=== PATIENT | male | born 1965 | race Caucasian/White ===

== ENCOUNTER → 2016-07-13 | Outpatient (CLI) | payer OTHER ==
[~2016-07-13] MED LIST: ACETAMINOPHEN325 M1 PO; B12INJ IM; BENZTROPINE ME0.5 MG PO; BISACODYL SUPP10 MG RE; CLONAZEPAM 1 MG1 M1 PO; CLONAZEPAM PO; COLACE 100 MG100 MG PO; CYMBALTA20 MG PO; FOLIC ACID 1 MG1 MG PO; HYDROXYZINE HCL50 MG PO; IBUPROFEN 800800 M1 PO; KEFLEX500 MG PO; LIDODERM TOP; MAG-AL PLUS SUS30 ML PO; MIRAPEX 0.250.25 M1 PO; PHENERGAN 25 MG25 M1 PO; PRILOSEC20 MG PO; PROTONIX40 M2 PO; SENNA-LAX8.6 MG PO; SEROQUEL PO; SEROQUEL200 MG PO; TOPROL XL25 MG PO; TRAMADOL 50 MG50 MG PO; UNICOMPLEX M TA1 TA1 PO; VITAMIN B-1100 M1 PO
== END ==
LOC: RAD 08:28
DX: K74.60 Unspecified cirrhosis of liver (principal); R10.9 Unspecified abdominal pain; K76.0 Fatty (change of) liver, not elsewhere classified; R18.8 Other ascites; R06.02 Shortness of breath

== ENCOUNTER 2017-02-17 14:38 | Inpatient (IN) | payer OTHER ==
[~2017-02-17] VITALS: Ht 177.8 cm; Wt 67.1 kg
--- NOTE | ~2017-02-17 | P ---
[facility] [place] [address] PROCEDURE REPORT Name: RACIEL MOROCHO JR Room #: 316-P [facility] IN M.R.#: [id number] Admission: 02/17/17 Attend Phys: Dl Holm Discharge: Date of : 69 Report #: [id number] THIS REPORT FOR: //name// CC: Masrhal Mock BRIEF HISTORY: The patient is a 51-year-old male with history of alcohol abuse and also heavy use of nonsteroidals, Aleve 4-6 per day with abdominal pain, nausea and vomiting. He also has had weight loss. He was told several weeks ago that he had cirrhosis but has not had a liver biopsy. PREOPERATIVE DIAGNOSES: 1. Nausea. 2. Vomiting. 3. Abdominal pain. POSTOPERATIVE DIAGNOSES: 1. Multiple shallow antral ulcers, possibly related to nonsteroidals. 2. Diffuse erythematous gastritis. MEDICATIONS: Deep sedation with propofol per anesthesia. SPECIMEN: Biopsies of antral ulcers. ESTIMATED BLOOD LOSS: 3 mL. PROCEDURE: EGD with biopsy. FINDINGS: Prior to propofol sedation, procedure of upper endoscopy was discussed with the patient as well as potential risks and its complications. He indicates he understands and desires to proceed. DESCRIPTION OF PROCEDURE: With the patient in left lateral decubitus position, the Fuji video endoscope was inserted in the cervical esophagus without difficulty. Examination of this organ through its entire length revealed normal esophageal mucosa throughout the entire length. No esophageal varices were seen. The patient has had erosive esophagitis in the past and none was seen today. The scope was advanced in the stomach, was examined on end view as well as retroflexed views. There was a diffuse erythema throughout the stomach. Previous biopsies were negative for H. pylori. He was noted to have 3 small shallow ulcers in the antrum of the stomach, they were nonbleeding. Largest was about 5 mm or so. Biopsies were obtained. In addition, gastric varices were not seen. The pylorus, duodenal bulb and postbulbar sweep were inspected and noted to be unremarkable. At that point, the scope was slowly withdrawn and careful circumferential views confirmed the above findings. The patient tolerated the procedure well. [address] [address] PROCEDURE REPORT Name: BAILEERACIEL Room #: 316-P [facility] IN .R.#: [id number] Admission: 02/17/17 Attend Phys: Dl Holm Discharge: Date of : 69 Report #: [id number] DISPOSITION: The patient with nausea, vomiting, abdominal pain. He does have small ulcers, which may be related to use of nonsteroidals as well as his heavy alcohol use. We will follow up on biopsies. Would treat with PPI at this point in time as well as discontinuation of alcohol and nonsteroidals. It is also noted that he has markedly abnormal alkaline phosphatase. MRCP has been ordered as well as mitochondria antibody. The patient may need a liver biopsy in the future depending on clinical course. In addition, he has fullness and early satiety. Gastric emptying study has been ordered, but cannot be done today due to the upper endoscopy. We will reorder for tomorrow. I will continue to monitor for liver function studies. <ELECTRONICALLY SIGNED> By: Ahsan Roberts MD 02/19/17 1715 1211 171 Ahsan Roberts MD /nt
--- NOTE | ~2017-02-17 | H ---
[facility] [place] [address] HISTORY AND PHYSICAL Name: RACIEL MOROCHO Room #: 448-P [facility] IN ..#: [id number] Admission: 02/17/17 Attend Phys: Dl Holm Discharge: Date of : 69 Report #: [id number] THIS REPORT FOR: //name// CC: Be Mock DATE OF SERVICE: 02/17/2017 CHIEF COMPLAINT: Nausea and weight loss. HISTORY OF PRESENT ILLNESS: The patient is a 51-year-old gentleman who was admitted from the office for evaluation of GI symptoms. He does have a history of cirrhosis and has reported about 2 weeks or longer of nausea and loss of appetite. He said he often regurgitates food and has nausea symptoms earlier in the morning and late at night. He has lost unspecified amount of weight. He has had no major abdominal pain, fever, chills, diarrhea, or recent change in medications. There has been no report of hematemesis. PAST MEDICAL HISTORY: Cirrhosis, bipolar schizophrenia, anxiety, history of remote Guillain-Alexander syndrome, has had several skin infections, and history of gastritis. PAST SURGICAL HISTORY: Cholecystectomy. FAMILY HISTORY: Noncontributory. SOCIAL HISTORY: Remote alcohol use, says none recently. ALLERGIES: None. MEDICATIONS: Cymbalta 60 mg twice a day, Remeron 30 mg, Seroquel 300 mg half tab in the morning, one and half tabs at night; clonazepam 1 mg 3 times a day, aspirin 81 mg, trazodone 100 mg at night, and Prilosec 40 mg. REVIEW OF SYSTEMS: Denies headache, chest pain, shortness of breath, dysuria, myalgias, arthralgias, syncope or fall. OBJECTIVE: VITAL SIGNS: Temperature 36.6, pulse 80, respirations 18, blood pressure . GENERAL: He is awake and alert, in no distress. LUNGS: Clear with no wheezing. HEART: Regular, without murmur. ABDOMEN: Soft, normoactive bowel sounds, slightly distended. EXTREMITIES: No cyanosis, clubbing, or edema. LAB DATA: Reviewed. [facility] [address] [facility] [place] [address] HISTORY AND PHYSICAL Name: RACIEL MOROCHO TAMICA Room #: 448-P [facility] IN R.#: [id number] Admission: 02/17/17 Attend Phys: Dl Holm Discharge: Date of : 69 Report #: [id number] Upper GI series showed a small hiatal hernia. Ultrasound of the abdomen showed cirrhosis of the liver and mild ascites. Chest x-ray was negative. Blood cultures negative so far. ASSESSMENT: 1. Nausea and vomiting. 2. Weight loss. 3. Cirrhosis of the liver. 4. Hypokalemia. PLAN: Gastric emptying time to be ordered. I will ask the GI service to see him in regards to any need for EGD or other invasive workup. <ELECTRONICALLY SIGNED> By: Alejandro Carranza MD 02/19/17 0853 [id number] [id number] Alejandro Carranza MD /nt
--- NOTE | ~2017-02-17 | S ---
[facility] [place] [address] SURGICAL PATH RPT PROCEDURE Name: LENNOX MOROCHO Room #: 316-P [facility] IN M.R.#: [id number] Admission: 02/17/17 Date of : 69 Discharge: 02/20/17 Report #: [id number] Path Case #: [id number] PATHOLOGY REPORT COLLECTION DATE: 02/19/2017 RECEIVED DATE: 02/19/2017 SUBMITTING PHYS: Dr. Ahsan Roberts OTHER PHYS: Dr. Be Mock SPECIMEN(S) RECEIVED: A.Bx of gastric ulcers * * * * * * * * * * * * FINAL DIAGNOSIS: Gastric mucosa, gastric ulcers, endoscopic biopsy: - Moderate reactive gastropathy. - Negative for intestinal metaplasia or atrophy. - Negative for Helicobacter pylori. (IUV:pit; 02/22/2017) COMMENT: Helicobacter pylori immunohistochemical stain performed on block A1 - negative. (IUV:pit; 02/22/2017) PATHOLOGIST: Carrie Bautista M.D. REPORT ELECTRONICALLY SIGNED BY: Carrie Bautista M.D. DATE/TIME: 02/22/2017 17:03 * * * * * * * * * * * * GROSS PATHOLOGY: Received in formalin labeled "Lennox Morocho, BX of gastric ulcers," are 2 segments of waldrop soft tissue measuring 0.8 x 0.3 x 0.3 cm in aggregate dimensions and ranging from 0.4 to 0.4 cm in maximum dimension. The specimen is submitted entirely in cassette A1. (TSD; 02/19/2017) CLINICAL HISTORY: History of alcohol use + NSAIDS INITIAL CPT CODE(S): A; 50707, 10998 Professional [facility] performed by [facility] [address] , [place] [address] [facility] [address] [place] [address] SURGICAL PATH RPT PROCEDURE Name: LENNOX MOROCHO Room #: 316-P [facility] IN M.R.#: [id number] Admission: 02/17/17 Date of : 69 Discharge: 02/20/17 Report #: [id number] Path Case #: [id number] Technical services performed by [facility] at [address] [place] [address], [facility] [address] [address]. [facility] [address] [place] [address] PHONE: [phone] DIRECTOR: Abelardo Roblero M.D. * * * END OF REPORT * * *
--- NOTE | ~2017-02-17 | HC ---
[facility] [place] [address] CONSULTATION Name: RACIEL MOROCHO JR Room #: 316-P [facility] IN M.R.#: [id number] Admission: 02/17/17 Attend Phys: Dl Holm Discharge: 02/20/17 Date of : 69 Report #: [id number] THIS REPORT FOR: //name// CC: Marshal Mock DATE OF SERVICE: 02/18/2017 TYPE OF REPORT: Gastroenterology consultation. PATIENT OF: Marshal Mock M.D. CHIEF COMPLAINT AND HISTORY OF PRESENT ILLNESS: This is a very pleasant 51-year-old white male who I am asked to evaluate for symptoms of nausea and vomiting within 15 minutes of any oral intake, early satiety, a 37-pound weight loss that was unintentional in the last month, dysphagia to solids and liquids and awaking at night with a choking sensation. The patient also has had diarrhea and pain across his lower abdomen of undetermined etiology. He has had occasional black stools. PAST MEDICAL HISTORY: Significant for cirrhosis, hiatal hernia, peptic ulcer disease, Schatzki ring, bipolar depression, Schizoaffective, left sciatica, Guillian-Hampden syndrome, heart murmur, the patient has dyspnea on exertion at times, he has oxygen desaturation and he has arthritis in his knee. PAST SURGICAL HISTORY: Significant for cholecystectomy. ALLERGIES: No known drug allergies. MEDICATIONS: Prior to admission included zinc, clonazepam, antacids, Remeron, Prilosec, Seroquel and trazodone as well as Aleve 2 tabs p.o. t.i.d. SOCIAL HISTORY: He apparently has not been drinking recently but used to drink 12-pack beer per day. He smokes 1 pack of cigarettes per day. He does not use any illicit drugs. FAMILY HISTORY: Significant for diverticulosis in his father. There is no history of colon polyps, colon cancers, Crohn's disease or ulcerative colitis in his family. REVIEW OF SYSTEMS: He admits to dysphagia to both liquids and solids. He has some symptoms of gastroesophageal reflux and I think this is what he takes the Prilosec for at home. He has a history of hiatal hernia and peptic ulcer disease. He has had nausea and vomiting within 15 minutes of any oral intake. He experiences early satiety. He sates his early satiety has been going on for [facility] [address] [place] [address] CONSULTATION Name: BAILEERAICELKaleb DAVEY JR Room #: 316-P [facility] IN [facility].#: [id number] Admission: 02/17/17 Attend Phys: Dl Holm Discharge: 02/20/17 Date of : 69 Report #: [id number] about the last 8 months. He has lost 37 pounds in the past 1 month, unintentionally. He has no history of diabetes. He has a history of hiatal hernia and peptic ulcer disease. He has had diarrhea and crampy lower abdominal pain that extend upward that is a pressure-like pain. He has had occasional black stools recently. He has a history of cirrhosis. He has had his gallbladder removed as I mentioned. PHYSICAL EXAMINATION: GENERAL: Reveals a well-developed, thin 51-year-old white male who is in no apparent distress at the time of my examination. He is awake, alert and oriented x 4 and cooperative and very pleasant to converse with. VITAL SIGNS: Blood pressure 122/85, temperature 97.9, pulse 80 and respirations are 18. His weight is 148 pounds today and his height is 5 feet 10 inches. HEENT: He is normocephalic, atraumatic and anicteric. HEART: Rate and rhythm are regular with a normal S1 and S2. LUNGS: Clear bilaterally. ABDOMEN: Soft. Bowel sounds are present in all 4 quadrants. There is no palpable organomegaly or mass. There is tenderness in the lower quadrants but no rebound or guarding. EXTREMITIES: Warm and dry with no peripheral cyanosis, clubbing or edema. NEUROLOGICAL: He appears grossly intact without any lateralizing signs. SIGNIFICANT LABORATORY DATA: His sodium was 131 on admission with potassium 3.0, chloride 91, CO2 was 28, BUN was 8, creatinine 0.7 and glucose was 139. AST 56, ALT 24, alkaline phosphatase 667 and total bilirubin is 2.1. His GGTP was greater than 800. White count 5.8; hemoglobin 15.5; hematocrit 43.5; MCV was 106; MCH 38; MCHC 36; RDW is 14.5 and platelets 179,000. TSH was 4.254, which is slightly elevated. RADIOLOGICAL DATA: Upper GI series showed a sliding hiatal hernia, mild gastroesophageal reflux, stomach was normal and the duodenum and proximal small bowel were normal. Ultrasound of the abdomen was done to evaluate elevated liver enzymes with the disease and cirrhosis. The liver was enlarged at 19.5 cm and echogenic and somewhat inhomogeneous with lobulation of the liver consistent with cirrhosis. Spleen is 13.8 cm. There was [id number] perihepatic ascites noted. Bile duct was 7 mm and the gallbladder was absent. The liver appeared similar to a previous ultrasound on 07/13/2016 and ascites was noted at that time as well. IMPRESSION: 1. Early satiety, nausea and vomiting within 15 minutes of eating, no matter what kind of food eaten. This sounds like gastroparesis. The patient has had a gastric emptying study today, I am told but the results are not available in the computer area. 2. Weight loss, unintentional of 37 pounds in the past month. 3. Dysphagia to liquids and solids. [facility] [address] [place] [address] CONSULTATION Name: RACIEL MOROCHO JR Room #: 316-P [facility] IN .R.#: [id number] Admission: 02/17/17 Attend Phys: Dl Holm Discharge: 02/20/17 Date of : 69 Report #: [id number] 4. History of dilatation of a Schatzki ring by Dr. Zeng in 2014. 5. History of hiatal hernia and peptic ulcer disease. 6. The patient awakens at night, chocking. This may be gastroesophageal reflux. 7. Diarrhea, rule out Clostridium difficile. 8. Pain across the lower abdomen. 9. Cirrhosis, likely due to alcohol. 10. Occasional black stools. 11. Elevated alkaline phosphatase over 600 with GGTP over 800. 12. Elevated TSH, may be significant for hypothyroidism. 13. Bipolar depression. 14. Schizophrenia. 15. Left-sided sciatica. 16. History of Guillian-Hampden syndrome. 17. Oxygen desaturation intermittently. 18. Intermittent dyspnea on exertion. 19. Arthritis in his knees for which he has been taking any Aleve 2 tabs p.o. q.i.d. and Ecotrin p.r.n. 20. Status post cholecystectomy. RECOMMENDATIONS: My recommendations are as follows: I agree with the gastric emptying study. The patient may also need an EGD with possible dilatation of his esophagus. I agree with the proton pump inhibitors and he should stop any alcohol but he still be drinking. We will check a stool for C. difficile toxin. We will plan on an EGD in the morning by Dr. Roberts. I will check a Protime in the morning as well. We will continue him on proton pump inhibitors. I think further evaluation of his elevated alkaline phosphatase and GGTP needs to be undertaken because this is a greater elevation than he has ever had in previous labs and I will check an antimitochondrial antibody. The elevated TSH needs to be addressed as the patient may need to the Synthroid. Thank you very much once again for allowing me to participate in his care. <ELECTRONICALLY SIGNED> By: Jessica Mclaughlin DO 02/24/17 0622 [id number] Jessica Mclaughlin DO /nt
[2017-02-17 15:41] VITALS: BP 126/91
[2017-02-17] MEDS ORDERED: REMERON 30 MG T30 M1 PO (16:54)
[2017-02-17] MEDS ORDERED: ZINC30 MG PO (16:55)
[2017-02-17] MEDS ORDERED: TRAZODONE HCL100 MG PO (16:55)
[2017-02-17 18:48] LABS: ABSOLUTE NEUTROPHILS 3.8 thou/uL (1.4-8.2); BASOPHILS 0.5 % (0.0-2.0); EOSINOPHILS 2.6 % (0.0-3.0); HEMATOCRIT 43.5 % (42.0-52.0); HEMOGLOBIN 15.5 gm/dL (14.0-18.0); LYMPHOCYTES 20.3 % (24.0-44.0); MCH 37.7 pg (26.0-34.0); MCHC 35.6 g/dL (28.0-37.0); MONOCYTES 11.5 % (1.0-8.0); PLATELET COUNT 179 thou/uL (150-400); POLYS 65.1 % (36.0-66.0); RBC 4.11 mil/uL (4.50-6.00); RDW 14.5 % (10.5-14.5); WBC 5.8 thou/uL (4.0-11.0)
[2017-02-17 18:59] LABS: ALBUMIN 3.6 g/dL (3.4-5.0); CALCIUM 9.4 mg/dL (8.5-10.1); CREATININE 0.7 mg/dL (0.7-1.3); TOTAL BILIRUBIN 2.1 mg/dL (<0.1-1.0); TOTAL PROTEIN 7.5 g/dL (6.4-8.2)
[2017-02-17 19:12] LABS: MANUAL DIFF NO
[2017-02-17 19:36] VITALS: BP 114/85
[2017-02-18 04:14] VITALS: BP 116/84
[2017-02-18 07:31] VITALS: BP 122/85
[2017-02-18 16:02] VITALS: BP 111/74
[2017-02-18 20:00] VITALS: BP 100/69
[2017-02-19 05:00] VITALS: BP 121/80
[2017-02-19 06:41] LABS: ALBUMIN 3.4 g/dL (3.4-5.0); CALCIUM 9.3 mg/dL (8.5-10.1); CREATININE 0.6 mg/dL (0.7-1.3); POTASSIUM 3.4 mmol/L (3.5-5.1); TOTAL BILIRUBIN 1.7 mg/dL (<0.1-1.0); TOTAL PROTEIN 7.3 g/dL (6.4-8.2)
[2017-02-19 08:16] VITALS: BP 115/82
[2017-02-19 20:00] VITALS: BP 117/78
[2017-02-20 00:10] LABS: HEPATITIS C VIRUS AB <0.1 (0.0-0.9)
[2017-02-20 04:30] VITALS: BP 112/79
[2017-02-20 05:58] LABS: ALBUMIN 3.3 g/dL (3.4-5.0); TOTAL BILIRUBIN 1.3 mg/dL (<0.1-1.0); TOTAL PROTEIN 6.9 g/dL (6.4-8.2)
[2017-02-20 08:26] VITALS: BP 125/84
[2017-02-20 09:34] VITALS: BP 125/84
== END 2017-02-20 09:45 | disposition home or self-care (01) | DRG 433 ==
LOC: 4S 14:38 → 3N 02-19 15:19
PROVIDERS: Internal Medicine; Internal Medicine Gastroenterology; Internal Medicine Geriatric Medicine; Specialist
PROC: 0DB68ZX Excision of Stomach, Via Natural or Artificial Opening Endoscopic, Diagnostic (ICD-10-PCS; principal; 2017-02-19)
DX: K70.30 Alcoholic cirrhosis of liver without ascites (principal); G61.0 Guillain-Barre syndrome; F31.9 Bipolar disorder, unspecified; M54.32 Sciatica, left side; M19.90 Unspecified osteoarthritis, unspecified site; R68.81 Early satiety; R13.10 Dysphagia, unspecified; F41.9 Anxiety disorder, unspecified; E87.6 Hypokalemia; F10.21 Alcohol dependence, in remission; K25.9 Gastric ulcer, unspecified as acute or chronic, without hemorrhage or perforation; K29.70 Gastritis, unspecified, without bleeding; F20.9 Schizophrenia, unspecified; Z87.11 Personal history of peptic ulcer disease; Z90.49 Acquired absence of other specified parts of digestive tract; Z84.89 Family history of other specified conditions
CPT/HCPCS: 10102; 10795; 62110; 62900; 70005

== ENCOUNTER → 2017-02-23 | Outpatient (CLI) | payer OTHER ==
[~2017-02-23] MED LIST changes: +REMERON 30 MG T30 M1 PO; +TRAZODONE HCL100 MG PO; +ZINC30 MG PO
== END ==
LOC: NUC 11:03
DX: K31.84 Gastroparesis (principal); R11.0 Nausea

== ENCOUNTER 2017-08-08 08:57 | Emergency (ER) | payer OTHER, BC ==
[~2017-08-08] VITALS: Ht 175.3 cm; Wt 74.8 kg
[2017-08-08 09:26] LABS: ABSOLUTE NEUTROPHILS 9.1 thou/uL (1.4-8.2); BASOPHILS 0.7 % (0.0-2.0); EOSINOPHILS 1.5 % (0.0-3.0); HEMATOCRIT 49.8 % (42.0-52.0); HEMOGLOBIN 17.7 gm/dL (14.0-18.0); LYMPHOCYTES 9.8 % (24.0-44.0); MCH 37.3 pg (26.0-34.0); MCHC 35.6 g/dL (28.0-37.0); MCV 104.9 fL (80.0-100.0); MONOCYTES 11.4 % (1.0-8.0); PLATELET COUNT 375 thou/uL (150-400); POLYS 76.6 % (36.0-66.0); RBC 4.75 mil/uL (4.50-6.00); RDW 13.4 % (10.5-14.5); WBC 11.8 thou/uL (4.0-11.0)
[2017-08-08 09:27] LABS: CALCIUM 9.5 mg/dL (8.5-10.1); CREATININE 0.8 mg/dL (0.7-1.3)
[2017-08-08 09:35] LABS: DIRECT BILIRUBIN 1.6 mg/dL (<0.1-0.3); TOTAL BILIRUBIN 2.4 mg/dL (<0.1-1.0); TOTAL PROTEIN 8.5 g/dL (6.4-8.2)
[2017-08-08 09:44] LABS: ANISOCYTOSIS 1+
[2017-08-08] MEDS ORDERED: PHENERGAN 25 MG25 M1 PO (10:13)
[2017-08-08] MEDS ORDERED: PROMS25 WY RECTAL (10:13)
[2017-08-08] MEDS ORDERED: ZOFRAN ODT4 MG PO (10:13)
[2017-08-08] MEDS ORDERED: NORCO 5-325 TA1 EACH PO (10:28)
[2017-08-08] MEDS ORDERED: POTASSIUM20 PO (10:28)
[2017-08-08 11:16] VITALS: BP 146/74
== END 2017-08-08 11:17 | disposition home or self-care (01) ==
LOC: ER 08:57
PROVIDERS: Emergency Medicine
DX: R19.7 Diarrhea, unspecified (principal); R11.2 Nausea with vomiting, unspecified; K74.60 Unspecified cirrhosis of liver; E87.6 Hypokalemia; R94.5 Abnormal results of liver function studies; F10.10 Alcohol abuse, uncomplicated; K21.9 Gastro-esophageal reflux disease without esophagitis

== ENCOUNTER 2017-11-29 13:14 | Inpatient (IN) | payer OTHER, BC ==
[~2017-11-29] VITALS: Ht 175.3 cm; Wt 59.2 kg
--- NOTE | ~2017-11-29 | HC ---
[facility] [place] [address] CONSULTATION Name: RACIEL MOROCHO JR Room #: 208-P [facility] IN M.R.#: [id number] Admission: 11/29/17 Attend Phys: Dl Holm Discharge: Date of : 69 Report #: [id number] THIS REPORT FOR: //name// CC: Be Mock DATE OF SERVICE: 11/30/2017 HISTORY OF PRESENT ILLNESS: The patient was admitted with concerns about alcohol detox. The patient has been drinking heavily for a couple of weeks now. He notes his psychiatrist had recently switched to an antidepressant from Trintellix to something else because of lack of response and in fact also suicidal thinking. The patient confesses that he has cirrhosis and he knows he needs to stop alcohol use. He denies suicidal ideation at this time. He is motivated for sobriety. PAST PSYCHIATRIC HISTORY: The patient has been diagnosed with schizophrenia in the past. He acknowledges that his symptoms are not terribly severe, but he will at times hear voices and be talking to himself. He believes that his symptoms of schizophrenia are distinct from alcohol use disorder and as much as his symptoms are not related to alcohol use or withdrawal. He does think it is likely though that periods of significant hallucinations can increase likelihood of alcohol use. Currently, he is seeing Dr. Elio Banks with the [facility] [place]. Recently, he was on Trintellix, which was associated with the adverse drug reaction of suicidal thinking. More recently, I think he has been on Seroquel and duloxetine though then he tells me that he believes Seroquel has been changed. PAST MEDICAL HISTORY: History of Guillain-Edgemont and cirrhosis. SOCIAL HISTORY: He lives alone, but has some pets. He does have a family and friends in the [place] area. He has been battling alcohol use disorder and in the last few years does not seem there is a period of sobriety longer than 30 days and he has struggled with periods of 1-2 weeks of alcohol use interspersed with weeks of sobriety. COGNITIVE EXAMINATION: He is alert and oriented to person, place, situation and time. No significant deficits of short-term, long-term, intermediate memory as evidenced by his ability to recall elements of the past medical, psychiatric and social history. MENTAL STATUS EXAMINATION: A male, casually dressed. No involuntary movements. Depressed mood and restricted affect. Currently, no hallucinations. No delusions. No suicidal or homicidal ideation. Insight and judgment fair. DIAGNOSIS: Chronic paranoid schizophrenia, major depressive disorder and recurrent alcohol use disorder. [facility] [address] [place] [address] CONSULTATION Name: RACIEL MOROCHO Room #: 208-P [facility] IN M.R.#: [id number] Admission: 11/29/17 Attend Phys: Dl Holm Discharge: Date of : 69 Report #: [id number] RECOMMENDATIONS: It appears that perhaps his regimen had been changed to continue to include Seroquel, but also utilize duloxetine and mirtazapine for depression. Does appear there is lorazepam ordered in case he should have symptoms of significant withdrawal. He has failed Campral for alcohol use disorder in the past. I believe that naltrexone would be an excellent intervention with respect to alcohol use disorder and I believe as an outpatient, he could get this from either Dr. Banks or Dr. Mock. He should continue to follow with Dr. Banks with respect to depression management and schizophrenia management. He is welcome to see one of the therapists in my office such as Edilberto Ronquillo who he has seen in the past or Mary Felix or Marshal Tobias or more active with addiction counseling. By: 1524 0025 Jamarcus Cobb MD /nt
--- NOTE | ~2017-11-29 | H ---
[facility] [place] [address] HISTORY AND PHYSICAL Name: RACIEL MOROCHO JR Room #: 208-P [facility] IN .R.#: [id number] Admission: 11/29/17 Attend Phys: Dl Holm Discharge: Date of : 69 Report #: [id number] THIS REPORT FOR: //name// CC: Be Mock DATE OF SERVICE: 11/29/2017 CHIEF COMPLAINT: Abdominal pain, nausea, vomiting, weight loss. HISTORY OF PRESENT ILLNESS: The patient is a 52-year-old gentleman who presented to the Emergency Room with abdominal pain with nausea and vomiting. For the last 3 or 4 weeks, he has had intermittent nausea, vomiting and has lost about 40 pounds. He is not regurgitating food, but does report a bile. He says, maybe, there has been scattered blood, but nothing significant. He apparently was hospitalized last month in [place] for similar symptoms, but he said really they did not pursue any diagnostic workup. It does seem to get better with conservative treatment and was discharged home. He does have a history of cirrhosis of the liver due to alcohol use and pancreatitis. PAST MEDICAL HISTORY: Guillain-Benton syndrome, alcohol abuse, cirrhosis, hiatal hernia, GERD, schizophrenia, bipolar. PAST SURGICAL HISTORY: Unknown. FAMILY HISTORY: Noncontributory. SOCIAL HISTORY: Chronic alcohol, tobacco use. He admits to marijuana use. ALLERGIES: None. MEDICATIONS: Remeron, trazodone, Prilosec, Seroquel, Cymbalta. REVIEW OF SYSTEMS: He denies headache, chest pain, shortness of breath, dysuria, myalgias, syncope or fall. OBJECTIVE: VITAL SIGNS: Temperature 36.8, pulse 50, respirations 18, blood pressure 155/90, O2 sat 100% on room air. GENERAL: He is awake and alert, in no distress. HEAD AND NECK: Unremarkable. LUNGS: Clear. HEART: Regular. ABDOMEN: Soft, flat, normal bowel sounds, just diffusely tender. EXTREMITIES: No cyanosis, clubbing or edema. NEUROLOGIC: Cranial nerves intact. Motor strength intact. [facility] [address] [place] [address] HISTORY AND PHYSICAL Name: RACIEL MOROCHO TAMICA Room #: 208-P [facility] IN .R.#: [id number] Admission: 11/29/17 Attend Phys: Dl Holm Discharge: Date of : 69 Report #: [id number] LABORATORY DATA: His alcohol level was 138, lipase was normal, transaminase levels fairly normal. CT of the abdomen shows cirrhosis, ascites, possible transverse colon colitis. ASSESSMENT: 1. Abdominal pain. 2. Alcohol abuse. 3. Cirrhosis of the liver. The patient will be placed on alcohol withdrawal protocol. I will ask the GI Service to see him regarding possible endoscopy. <ELECTRONICALLY SIGNED> By: Alejandro Carranza MD 11/30/17 1241 1006 1023 Alejandro Carranza MD /aman
--- NOTE | ~2017-11-29 | D ---
[facility] [place] [address] DISCHARGE SUMMARY Name: RACIEL MOROCHO Room #: 208-P [facility] IN M.R.#: [id number] Admission: 11/29/17 Attend Phys: Dl Holm Discharge: 12/02/17 Date of : 69 Report #: [id number] THIS REPORT FOR: //name// CC: Be Mock DATE OF SERVICE: 12/02/2017 FINAL DIAGNOSES: 1. Cirrhosis of the liver. 2. Alcohol abuse. 3. Chronic thrombocytopenia. 4. Macrocytic anemia. 5. B12 deficiency. 6. Electrolytes imbalance. 7. Gastritis. HOSPITAL COURSE: The patient was admitted with abdominal pain. Lab data was fairly unremarkable other than slight low magnesium, which he was replaced. GI Service saw him. MRI of the liver was obtained, which showed cirrhosis. There was no mass. Lipase and amylase were negative. He underwent EGD, which showed just mild erythema of the gastric lining, but no ulcers or bleeding. He was treated symptomatically. He had no other interval complications. He was watched for alcohol withdrawal, but had no symptoms. He was alert and oriented. There were no signs of delirium, no signs of tachycardia or hypertension. PHYSICAL EXAMINATION: GENERAL: On the day of discharge, he was resting comfortably in bed, alert and oriented, in no distress. VITAL SIGNS: Temperature 36.6, pulse 57, respirations 18, blood pressure 125/80, O2 sat 99% on room air. LUNGS: Clear. HEART: Regular. ABDOMEN: Soft, normoactive bowel sounds. EXTREMITIES: No edema. DISPOSITION: To be discharged to home with diet and activity as tolerated, resume all home meds, plus magnesium supplement, thiamine supplement. He will need outpatient B12 supplement and follow up with Dr. Mock in 1 week. <ELECTRONICALLY SIGNED> By: Alejandro Carranza MD 12/03/17 0956 [id number] 1039 Alejandro Carranza MD /nt
[~2017-11-29 13:14] MED LIST changes: +NORCO 5-325 TA1 EACH PO; +POTASSIUM20 PO; +PROMS25 WY RECTAL; +ZOFRAN ODT4 MG PO
[2017-11-29 13:17] VITALS: BP 152/92
[2017-11-29 14:41] LABS: ABSOLUTE NEUTROPHILS 6.6 thou/uL (1.4-8.2); BASOPHILS 1.1 % (0.0-2.0); EOSINOPHILS 1.4 % (0.0-3.0); HEMATOCRIT 51.9 % (42.0-52.0); HEMOGLOBIN 18.1 gm/dL (14.0-18.0); LYMPHOCYTES 17.8 % (24.0-44.0); MCH 35.3 pg (26.0-34.0); MCHC 34.9 g/dL (28.0-37.0); MCV 101.1 fL (80.0-100.0); MONOCYTES 9.2 % (1.0-8.0); PLATELET COUNT 317 thou/uL (150-400); POLYS 70.5 % (36.0-66.0); RBC 5.14 mil/uL (4.50-6.00); WBC 9.4 thou/uL (4.0-11.0)
[2017-11-29 14:48] LABS: CALCIUM 9.8 mg/dL (8.5-10.1); CREATININE 0.8 mg/dL (0.7-1.3); POTASSIUM 4.2 mmol/L (3.5-5.1)
[2017-11-29 14:56] LABS: ALBUMIN 4.3 g/dL (3.4-5.0); TOTAL PROTEIN 8.9 g/dL (6.4-8.2)
[2017-11-29 17:03] LABS: URINE BLOOD NEGATIVE (Negative); URINE CLARITY CLEAR; URINE COLOR YELLOW; URINE GLUCOSE-RANDOM* NEGATIVE (Negative); URINE KETONES 2+ (Negative); URINE LEUKOCYTES-REFLEX NEGATIVE (Negative); URINE NITRITE-REFLEX NEGATIVE (Negative); URINE PROTEIN (DIPSTICK) 2+ (Negative); URINE SPECIFIC GRAVITY 1.015 (1.005-1.035); URINE UROBILINOGEN 0.2 E.U./dl (0.2-1.0)
[2017-11-29 17:07] LABS: ICTOTEST (BILI CONFIRMATORY) Negative (Negative); URINE BILIRUBIN NEGATIVE (Negative)
[2017-11-29 17:14] LABS: CASTS None Seen /LPF (None Seen); SQUAMOUS None Seen /LPF (0-3)
[2017-11-29 17:15] LABS: BACTERIA-REFLEX 1-9 Few /HPF (None Seen); CRYSTALS None Seen /LPF (None Seen); URINE RBC None Seen /HPF (0-2); URINE WBC-REFLEX 0-5 Rare /HPF (0-5)
[2017-11-29 18:00] VITALS: BP 130/78
[2017-11-30 00:15] VITALS: BP 142/80
[2017-11-30 06:00] VITALS: BP 155/83
[2017-11-30 07:09] VITALS: BP 155/90
[2017-11-30 11:29] VITALS: BP 144/77
[2017-11-30 15:00] VITALS: BP 135/74
[2017-11-30 17:07] LABS: AMP/METHAMP Negative (Negative); BARBITURATES Negative (Negative); BENZODIAZEPINES Negative (Negative); COCAINE Negative (Negative); METHADONE Negative (Negative); OPIATES POSITIVE (Negative); PCP Negative (Negative)
[2017-11-30 19:57] VITALS: BP 127/79
[2017-12-01 04:10] VITALS: BP 93/61
[2017-12-01 07:49] VITALS: BP 104/74
[2017-12-01 09:55] LABS: HEMATOCRIT 41.1 % (42.0-52.0); MCH 34.7 pg (26.0-34.0); MCHC 33.7 g/dL (28.0-37.0); MCV 102.8 fL (80.0-100.0); RDW 15.7 % (10.5-14.5); WBC 3.5 thou/uL (4.0-11.0)
[2017-12-01 10:02] LABS: HEMOGLOBIN 13.9 gm/dL (14.0-18.0)
[2017-12-01 10:03] LABS: CALCIUM 8.7 mg/dL (8.5-10.1); CREATININE 0.6 mg/dL (0.7-1.3); POTASSIUM 3.7 mmol/L (3.5-5.1)
[2017-12-01 11:08] VITALS: BP 101/67
[2017-12-01 20:27] VITALS: BP 115/78
[2017-12-02 03:29] VITALS: BP 125/80
[2017-12-02 03:52] LABS: CALCIUM 8.9 mg/dL (8.5-10.1); CREATININE 0.6 mg/dL (0.7-1.3); MAGNESIUM 1.5 mg/dL (1.8-2.4); PHOSPHORUS 3.7 mg/dL (2.5-4.9); POTASSIUM 3.9 mmol/L (3.5-5.1)
[2017-12-02 08:01] VITALS: BP 118/82
[2017-12-02] MEDS ORDERED: MAGOX 400400 MG PO (09:22)
[2017-12-02] MEDS ORDERED: VITAMIN B-1100 M2 PO (09:23)
[2017-12-02 09:47] VITALS: BP 118/82
== END 2017-12-02 11:02 | disposition home or self-care (01) | DRG 432 ==
LOC: ER 13:14 → 2N 17:20 → EROBS 17:20 → 2N 11-30 00:08 → ENTRNSPT 12-02 10:43 → EDTRNSPTSTS 12-02 10:49 → 2N 12-02 11:02
PROVIDERS: Emergency Medicine; Internal Medicine; Internal Medicine Geriatric Medicine
PROC: 0DJ08ZZ Inspection of Upper Intestinal Tract, Via Natural or Artificial Opening Endoscopic (ICD-10-PCS; principal; 2017-12-01)
DX: K70.11 Alcoholic hepatitis with ascites (principal); E43 Unspecified severe protein-calorie malnutrition; K29.71 Gastritis, unspecified, with bleeding; F20.0 Paranoid schizophrenia; G61.0 Guillain-Barre syndrome; Z68.1 Body mass index [BMI] 19.9 or less, adult; K21.9 Gastro-esophageal reflux disease without esophagitis; F31.9 Bipolar disorder, unspecified; K74.60 Unspecified cirrhosis of liver; Z60.2 Problems related to living alone; F10.10 Alcohol abuse, uncomplicated; K52.9 Noninfective gastroenteritis and colitis, unspecified; D69.6 Thrombocytopenia, unspecified; D53.9 Nutritional anemia, unspecified; E53.8 Deficiency of other specified B group vitamins; Z87.11 Personal history of peptic ulcer disease; Z90.49 Acquired absence of other specified parts of digestive tract
CPT/HCPCS: 10081; 62110; 62900; 70005

== ENCOUNTER 2019-08-17 11:42 | Inpatient (IN) | payer OTHER, BC ==
[~2019-08-17] VITALS: Ht 175.3 cm; Wt 48.5 kg
--- NOTE | ~2019-08-17 | D ---
[facility] [place] [address] DISCHARGE SUMMARY Name: RACIEL MOROCHO JR Room #: 457-P ADM IN M.R.#: [id number] Admission: 08/17/19 Attend Phys: lD Holm Discharge: Date of : 69 Report #: [id number] THIS REPORT FOR: cc: Be Mock MD,Alejandro Moreira MD, MD ~ THIS REPORT FOR: //name// CC: Be Mock FINAL DIAGNOSES: 1. Esophagitis. 2. Hyponatremia. 3. Cirrhosis of the liver. HOSPITAL COURSE: The patient was admitted with abdominal pain, weight loss and hyponatremia. GI was consulted and EGD performed revealing esophagitis. He was treated with proton pump inhibitor and Carafate. Other medications from home were held. Synthetic function of liver seemed pretty good with a normal cholesterol and a protime INR. His transaminase levels really were not that elevated. Abdominal ultrasound did not show ascites. MRI of the liver did not show a mass. He had no other interval complication. PHYSICAL EXAMINATION: GENERAL: On the day of discharge, he was awake and alert. VITAL SIGNS: Stable vital signs. LUNGS: Clear. HEART: Regular. ABDOMEN: Soft, normoactive bowel sounds. EXTREMITIES: Showed no edema. DISPOSITION: To be discharged to [facility] for inpatient rehabilitation. He will continue usual home medications plus Carafate and Protonix. I will follow his stay there. Diet and activity, PT, OT. Follow up with Dr. Mock in a month. By: 1215 1225 Alejandro Carranza MD /nt
[~2019-08-17 11:42] MED LIST changes: +MAGOX 400400 MG PO; +VITAMIN B-1100 M2 PO
[2019-08-17 15:24] VITALS: BP 112/77
[2019-08-17 17:17] LABS: ABSOLUTE NEUTROPHILS 5.1 thou/uL (1.4-8.2); BASOPHILS 0.6 % (0.0-2.0); EOSINOPHILS 0.4 % (0.0-3.0); HEMATOCRIT 32.8 % (42.0-52.0); HEMOGLOBIN 11.2 gm/dL (14.0-18.0); LYMPHOCYTES 11.1 % (24.0-44.0); MCH 31.1 pg (26.0-34.0); MCHC 34.2 g/dL (28.0-37.0); MCV 90.9 fL (80.0-100.0); MONOCYTES 10.9 % (1.0-8.0); PLATELET COUNT 270 thou/uL (150-400); RBC 3.61 mil/uL (4.50-6.00); RDW 18.4 % (10.5-14.5); WBC 6.6 thou/uL (4.0-11.0)
[2019-08-17 17:26] LABS: ALBUMIN 3.6 g/dL (3.4-5.0); CALCIUM 9.8 mg/dL (8.5-10.1); TOTAL BILIRUBIN 1.3 mg/dL (<0.1-1.0); TOTAL PROTEIN 7.1 g/dL (6.4-8.2)
[2019-08-17 17:36] LABS: POTASSIUM 2.3 mmol/L (3.5-5.1)
[2019-08-17 18:30] LABS: MAGNESIUM 1.4 mg/dL (1.8-2.4)
--- NOTE | 2019-08-17 19:17 | NUR ---
Received pt as a direct admit from Dr. Zoila Vora. Admission done, pt mentioned hwne asked for his medications that he does not remember and only takes the one given my Dr. VORA. IV placed on the left forearm. Called Dr. Vora informing that pt is on the floor and for critical labs, electrolyte protocol in place. mentioned he will put iin admission orders when he gets home. Endorsed to the night nurse.
[2019-08-17 19:22] VITALS: BP 110/70
[2019-08-18 05:19] LABS: CALCIUM 9.2 mg/dL (8.5-10.1)
[2019-08-18 05:56] LABS: POTASSIUM 2.8 mmol/L (3.5-5.1)
--- NOTE | 2019-08-18 06:03 | NUR ---
pt took 60 meq's potassium po per protocol for potassium of 2.3, recheck potassium level 2.8 Dr.Christopher Mock ordered to continue electrolyte protocol.
[2019-08-18 08:00] VITALS: BP 104/72
--- NOTE | 2019-08-18 08:13 | NUR ---
PROGRESS PT A/O X4 STATES HIS HEAD FEELS FOGGY. SODIUM LOW SO ON 1200CC FLUID RESTRICTION HAD ABOUT 400CC'S LAST NIGHT. HAS DIFFICULTY SWALLOWING SO PILLS GIVEN IN APPLESAUCE. ASSESSED FOR SIGNS AND SYMPTOMS OF WITHDRAWAL AND SLIGHT TREMORING NOTED PT DENIES ANY S/S OF WITHDRAWAL. WAS INCONTINENT OF STOOL X 1 VOIDED PER TOLIET X 1 AND PER URINAL X 1 SKIN C/D/I NO AREAS OF BREAKDOWN NOTED. CONTINUE POC.
[2019-08-18 11:27] LABS: CALCIUM 9.4 mg/dL (8.5-10.1); MAGNESIUM 1.6 mg/dL (1.8-2.4); POTASSIUM 3.3 mmol/L (3.5-5.1)
[2019-08-18 11:30] LABS: PROTIME 10.7 Seconds (9.3-11.4)
--- NOTE | 2019-08-18 13:17 | NUR ---
PT ADMITTED RELATED TO CHIRROSIS OF THE LIVER. CM REVIEWED CHART AND SPOKE WITH CARE TEAM. CM MET WITH PT AT BEDSIDE THIS DAY. PT IS A&O X4. CM ROLE INTRODCUED. PT INDICATED HE LIVES ALONE IN A CONDO WITH 3 STEPS TO ENTER AND NO STEPS INSIDE. 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 PT INDICATED HE HAD BEEN INDEPDENENT WITH ADLS. PT INDICATED NO HH HX OR POST ACUTE CARE STAYS. CM TO FOLLOW INDICATED WITH DC PLANNING.
[2019-08-18 19:47] VITALS: BP 101/74
--- NOTE | 2019-08-18 20:04 | NUR ---
Assumed pt care this am, VS stable, was placed NPO after breakfast, EGD done today. Electrolyte protocol done d/t low Mg, K and Na. 1200 cc fluid restrictions. Pills taken with applesauce. for US of the ABD niya am, NPO midnight onwards tonigiht. POC followed no signs or verbalizations of distress noted.
--- NOTE | 2019-08-19 05:08 | NUR ---
Assessments completed. K went up to 4.5 after completing 2 bags of potassium iv. mag replaced also per protocol. ambien ordered last night and given with some results. pt call out appropraitely for assistance. v/s stable. no s/s of distress. will cont to monitor
--- NOTE | 2019-08-19 07:57 | H ---
[facility] [place] [address] HISTORY AND PHYSICAL Name: RACIEL MOROCHO JR Room #: 457-P ADM IN M.R.#: [id number] Admission: 08/17/19 Attend Phys: Dl Holm Discharge: Date of : 69 Report #: [id number] THIS REPORT FOR: cc: Be Mock MD,Alejandro Moreira MD, MD ~ CC: Be Mock DATE OF SERVICE: 08/17/2019 CHIEF COMPLAINT: Weakness. HISTORY OF PRESENT ILLNESS: The patient is a 53-year-old gentleman with a history of alcoholic cirrhosis, who was admitted from the office with poor self-care and recent lab abnormality. He was seen in the office with concerns of terminal liver disease and hyponatremia of sodium 123. He admits to poor self-care of his usual ADLs at home and poor intake in diet recently. He said he has not been eating well for several weeks. He could not specify any specific weight loss. Otherwise, there were no specific symptoms or new pathology. PAST MEDICAL HISTORY: Alcohol-induced hepatitis and cirrhosis, remote history of Guillain-[place] syndrome, has had cellulitis of the toes, continues abscess of the right hand previously, history of gastritis without bleeding. PAST SURGICAL HISTORY: Cholecystectomy. FAMILY HISTORY: Noncontributory. SOCIAL HISTORY: He has got a [id number] history of smoking, prior chronic alcohol use. ALLERGIES: None. MEDICATIONS: Cymbalta 60 mg twice a day, omeprazole 20 mg, Reglan 10 mg q.i.d., trazodone 100 mg at bedtime. REVIEW OF SYSTEMS: He complains of trouble sleeping. Denies headache, chest pain, shortness of breath, abdominal pain, nausea, vomiting, diarrhea, constipation, dysuria, syncope. OBJECTIVE: VITAL SIGNS: Temperature 36.6, pulse 96, respirations 16, blood pressure 104/72, O2 sat 96% on room air. LUNGS: Clear. HEART: Regular. [facility] [place] [address] HISTORY AND PHYSICAL Name: BAILEERACIEL LEE Room #: 457-P [facility] IN ..#: [id number] Admission: 08/17/19 Attend Phys: Dl Holm Discharge: Date of : 69 Report #: [id number] ABDOMEN: Soft, normoactive bowel sounds. EXTREMITIES: No edema. LABORATORY REVIEW: Sodium is 122, potassium 2.8, magnesium 1.6, bilirubin 1.3, AST 51. ASSESSMENT: 1. Hyponatremia. 2. Hypokalemia. 3. Electrolyte disturbance. 4. Cirrhosis of the liver. 5. Weight loss. PLAN: Continue conservative approach to his electrolyte imbalance. He admits to poor appetite and intake recently and reviewing office notes, he has lost about 35 pounds since May. His weight is documented from the office 138 to 104 yesterday. It is unclear how long he has been hyponatremic, but this could be a chronic issue. Abdominal ultrasound to review his cirrhosis and any signs of ascites. I will ask the GI service to give an opinion, but there is likely nothing to do other than symptomatic management. <ELECTRONICALLY SIGNED> By: Alejandro Carranza MD 08/19/19 0757 [id number] 1023 Alejandro Carranza MD /nt
[2019-08-19 08:29] VITALS: BP 99/71
[2019-08-19 15:54] VITALS: BP 94/68
--- NOTE | 2019-08-19 19:16 | NUR ---
Assumed pt care this am, was NPO til US of the abd was completed. Diet and medications are well tolerated, encouraged suppliment intake. Pt took a self bath today. POC followed with no signs or verbalizations of distress have been noted.
[2019-08-19 20:09] VITALS: BP 101/64
--- NOTE | 2019-08-20 04:39 | NUR ---
No concerns overnight. pt has been sleeping well after taking his night time meds. ambulates to the bathroom with standby assist and a walker to the bathroom. v/s stable. no s/s of distress. will cont to monitor
[2019-08-20 06:13] LABS: CALCIUM 9.1 mg/dL (8.5-10.1); CREATININE 0.6 mg/dL (0.7-1.3); POTASSIUM 4.2 mmol/L (3.5-5.1)
[2019-08-20 08:00] VITALS: BP 94/66
[2019-08-20 15:00] VITALS: BP 105/67
--- NOTE | 2019-08-20 18:15 | NUR ---
Assumed pt care at 7am.Pt in and out of bed with sba to br.Assessment completed.vss.Pt tolerated meds and diet.Later this afternoon,pt c/o abdominal pain and requested for pain med.Dr Carranza notified,order noted.Tylenol po given with relief.Bed alarm in use for safety.No further c/o at present.Will continue to monitor.
[2019-08-20 20:16] VITALS: BP 95/68
[2019-08-21 04:14] VITALS: BP 88/61
[2019-08-21 04:15] VITALS: BP 97/68
--- NOTE | 2019-08-21 04:16 | NUR ---
ASSUMED PT CARE AROUND 1914. AXOX4. NPO PER PROTOCOL FOR ABD MRI IN AM. MAG REPLACED. NO S/S ACUTE DISTRESS NOTED OR REPORTED. WILL CONT TO MONITOR FOR ANY CHANGES IN CONDITION.
[2019-08-21 07:30] VITALS: BP 94/61
--- NOTE | 2019-08-21 14:05 | NUR ---
PHYSICIAN MENTIONING POSSIBLE POST ACUTE CARE STAY. CM MET WITH PT AND DISCUSSED POSSIBLE ADMISSION FOR SHORT TERM ACUTE REHAB STAY. PT RECEPTIVE TO REFERRALS BEING SENT TO [facility] AND [facility] FOR REVIEW. CM TO FOLLOW INDICATED WITH DC PLANNING.
--- NOTE | 2019-08-21 16:42 | NUR ---
FAXED REFERRAL TO [facility] SPOKE WITH DALE IN ADM SHE RECEIVED REFERRAL AND CAN ACCEPT AT DISCHARGE. FAXED REFERRAL TO [facility] SPOKE WITH LES IN ADM SHE WILL REVIEW REFERRAL. DP TO FOLLOW.
[2019-08-21 17:25] VITALS: BP 96/66
[2019-08-21 20:00] VITALS: BP 90/62
--- NOTE | 2019-08-22 03:11 | NUR ---
ASSUMED CARE OF PT AT 1900HRS. PT IS AOX4 AND LETS NEEDS BE KNOWN. FALL PRECAUTION IN PLACE. PT DENIED PAIN, NAUSEA, OR SOA. PT REPORTS FEELING ANXIOUS. PT WAS NOT ABLE TO SLEEP WELL THIS SHIFT. VSS AND NO S/S OF ACUTE DISTRESS. WILL CONTINUE TO MONITOR.
[2019-08-22 07:35] VITALS: BP 106/72
[2019-08-22] MEDS ORDERED: CARAFATE 1 GM TA1 G1 PO (12:09)
[2019-08-22] MEDS ORDERED: PANTOPRAZOLE SO40 M1 PO (12:10)
--- NOTE | 2019-08-22 13:04 | NUR ---
[facility] INDICATED THAT THEY CAN ACCEPT PT FOR ADMISSION. CM NOTIFIED PT AND DR. CAMPBELL'S THIS AM. LES LIAISON WITH [facility] VISITED PT THIS AM ROMMEL. CM FOLLOWED UP WITH PT AFTER LIAISON AND PHYSICIAN VISITED HIM AND HE INDICATED THAT HE IS AGREEABLE TO SHORT STAY AT ACUTE REHAB FACILITY. PT INDICATED HE WOULD PREFER TO GO TO [facility]. PHYSICIAN STATED THAT PT IS MEDICALLY STABLE TO DC THIS DAY. CHART COPY ORDERED. ORDERS TO BE FAXED. REPORT TO BE CALLED. TRANSPORT TO BE ARRANGED.
--- NOTE | 2019-08-22 14:45 | NUR ---
Assumed pt care at 7am.Pt in and out of bed with sba.Assessment completed.vss. Pt wanted to dc to rehab today.Dr Carranza here and dc order noted.Admission liason here from [facility].Pt agreed to dc to [facility] after discussion.Dc summary compile and chart copy done.Pt will be dc at 1530 per wc van to [facility].Pt in bed resting at present.Saline lock dc'd.Will continue to monitor.
--- NOTE | 2019-08-22 18:07 | PATH ---
[facility] [place] [address] PATHOLOGY RPT PROCEDURE Name: LENNOX MOROCHO Room #: 457-P [facility] IN M.R.#: [id number] Admission: 08/17/19 Date of : 69 Discharge: 08/22/19 Report #: [id number] Path Case #: [id number] [facility] Accession Number: [id number] . 01 Material submitted: . PART A: small bowel - BX OF SMALL BOWEL PART B: stomach - RANDOM GASTRITIS PART C: esophagus - ESOPHAGEAL ULCERS . 01 Clinical history: . Melena, GERD, dysphagia B. Rule H. pylori . 02 Diagnosis: A. Small bowel mucosa, small bowel, endoscopic biopsy: - Mild non-specific acute and chronic duodenitis associated with fundic-type metaplasia, compatible with focal peptic duodenitis. - Mild villous blunting present associated with duodenitis. - No increase in intraepithelial lymphocytes. . B. Gastric mucosa, gastritis, endoscopic biopsy: - Moderate reactive gastropathy. - Negative for intestinal metaplasia or atrophy. - Negative for Helicobacter pylori (properly controlled immunohistochemical stain performed). . C. Squamous mucosa, esophageal ulcers, endoscopic biopsy: - Mild active esophagitis associated with focal ulceration. - Negative for intestinal metaplasia or dysplasia. - Negative for increase in intraepithelial eosinophils. (IUV/db; 08/22/2019) LBQ 08/22/2019 1259 Local . 02 Electronically signed: . Carrie Bautista MD, Pathologist NPI- [id number] . 01 Gross description: . A. The specimen is received in formalin, labeled "Lennox Morocho Jr, BX of small bowel" and consists of multiple fragments of pink-waldrop tissue measuring 1.0 x 0.7 x 0.3 cm which are entirely submitted in A1. . B. The specimen is received in formalin, labeled "Lennox Morocho Jr, random gastritis" and consists of 4 fragments of pink-waldrop tissue measuring 1.1 x 0.6 x 0.3 cm in aggregate which are entirely submitted in B1. . C. The specimen is received in formalin, labeled "Lennox Morocho Jr, [facility] [address] [place] [address] PATHOLOGY RPT PROCEDURE Name: LENNOX MOROCHO JR Room #: 457-P DIS IN M.R.#: [id number] Admission: 08/17/19 Date of : 69 Discharge: 08/22/19 Report #: [id number] Path Case #: [id number] esophageal ulcer" and consists of 2 translucent fragments of pink herrmann tissue measuring 0.4 x 0.3 cm and 0.3 x 0.2 cm which are entirely submitted in C1. (SDY; 08/21/2019) SYU/SYU 08/21/2019 1506 Local . 02 Pathologist provided ICD-10: K29.80, K31.9, K20.9, K22.10 . 02 CPT . 926537, 594458, [id number], [id number] Specimen Comment: A courtesy copy of this report has been sent to [phone], [phone] Specimen Comment: [id number] Specimen Comment: Report sent to / DR VORA Performed at: [address], [place] [id number] MD Glen Chambers MD Phone: [phone] Performed at: [address] [id number] MD Carrie Bautista MD Phone: [phone]
== END 2019-08-22 16:09 | DRG 380 ==
LOC: 4W 11:42
PROVIDERS: Internal Medicine Geriatric Medicine; ADMIT Internal Medicine
PROC: 0DB98ZX Excision of Duodenum, Via Natural or Artificial Opening Endoscopic, Diagnostic (ICD-10-PCS; principal; 2019-08-18)
PROC: 0DB68ZX Excision of Stomach, Via Natural or Artificial Opening Endoscopic, Diagnostic (ICD-10-PCS; principal; 2019-08-18)
PROC: 0DB58ZX Excision of Esophagus, Via Natural or Artificial Opening Endoscopic, Diagnostic (ICD-10-PCS; principal; 2019-08-18)
DX: K22.11 Ulcer of esophagus with bleeding (principal); E43 Unspecified severe protein-calorie malnutrition; E87.1 Hypo-osmolality and hyponatremia; Z68.1 Body mass index [BMI] 19.9 or less, adult; K92.1 Melena; K70.30 Alcoholic cirrhosis of liver without ascites; E87.6 Hypokalemia; E87.8 Other disorders of electrolyte and fluid balance, not elsewhere classified; R63.4 Abnormal weight loss; F31.9 Bipolar disorder, unspecified; F20.9 Schizophrenia, unspecified; E83.42 Hypomagnesemia; D64.9 Anemia, unspecified; K31.89 Other diseases of stomach and duodenum; F10.10 Alcohol abuse, uncomplicated; I10 Essential (primary) hypertension; Z87.891 Personal history of nicotine dependence; Z90.49 Acquired absence of other specified parts of digestive tract; Z87.11 Personal history of peptic ulcer disease; Z79.899 Other long term (current) drug therapy
CPT/HCPCS: 10047; 62110; 62900; 70005